=== PATIENT | male | born 1955 | race Caucasian/White ===

== ENCOUNTER 2021-05-23 13:23 | Inpatient (IN) | payer OTHER, SELFPAY ==
[~2021-05-23] VITALS: Ht 172.7 cm; Wt 53.5 kg
[2021-05-23 13:23] VITALS: BP 113/72
--- NOTE | 2021-05-23 13:23 | NUR ---
PT BIBA ON A 5150 FOR GRAVELY DISABLED. PT PLACED IN BED 5. PT UNCOOPERATIVE AT THIS TIME.
[2021-05-23] MEDS ORDERED: BLOOD GLUCOSE MONITORING 1 DEV DEV FS ONE (13:30)
[2021-05-23] MEDS ORDERED: NACL 0.9% 1,000 ML IV ONE (13:30)
--- NOTE | 2021-05-23 13:30 | NUR ---
RECEIVED CONTACT FROM OFFICER BROWN. FAMILY MEMBER- NIECE JOSS MARTINEZ [phone]
--- NOTE | 2021-05-23 13:54 | NUR ---
PT TAKEN TO CT SCAN VIA KIARA
[2021-05-23 13:59] LABS: BASOPHILS # (AUTO) 0.1 K/uL (0.00-0.22); BASOPHILS % (AUTO) 0.4 % (0.0-2.0); EOSINOPHILS # (AUTO) 0.4 K/uL (0-0.4); EOSINOPHILS % (AUTO) 2.3 % (0.0-4.0); LYMPHOCYTES # (AUTO) 1.3 K/uL (2.0-11.5); LYMPHOCYTES % (AUTO) 7.2 % (20.5-51.1); MEAN CORPUSCULAR HEMOGLOBIN 38 pg (27-31); MEAN CORPUSCULAR HGB CONC 34 g/dL (33-37); MEAN CORPUSCULAR VOLUME 110.7 fL (80-94); MONOCYTES # (AUTO) 1.2 K/uL (0.8-1.0); MONOCYTES % (AUTO) 6.6 % (1.7-9.3); NEUTROPHILS # (AUTO) 14.9 K/uL (1.8-7.7); NEUTROPHILS % (AUTO) 83.5 % (42.2-75.2); PLATELET COUNT (AUTO) 177 K/uL (140-450); RED BLOOD CELL COUNT(AUTO) 1.75 MIL/uL (4.20-6.10); RED CELL DISTRIBUTION WIDTH 29.5 % (11.6-13.7); WHITE BLOOD COUNT (AUTO) 17.9 K/uL (4.8-10.8)
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
[2021-05-23 14:14] LABS: HEMATOCRIT 19.3 % (36-52); HEMOGLOBIN 6.5 g/dL (12.0-18.0)
--- NOTE | 2021-05-23 14:21 | NUR ---
NOVEL AND JENNIFER SWABS COLLECTED, DROPPED OFF AT LAB WITH NAINA VASQUEZ
[2021-05-23 14:52] LABS: ALBUMIN 2.5 g/dL (3.4-5.0); ANION GAP 14.7 (8-16); ASPARTATE AMINOTRANSFERASE 68 U/L (15-37); CARBON DIOXIDE 27.2 mmol/L (21-32); CHLORIDE 96 mmol/L (98-107); CREATININE 1.1 mg/dL (0.6-1.3); GFR ARICAN-AMERICAN 86 mL/min (>90); GLUCOSE 142 mg/dL (74-106); SODIUM SERUM 136 mmol/L (136-145); TOTAL BILIRUBIN 4.6 mg/dL (0.0-1.0); UREA NITROGEN, BLOOD 11 mg/dL (7-18)
[2021-05-23 14:53] LABS: PROTHROMBIN TIME 13.9 secs (10.8-13.4)
[2021-05-23 14:54] LABS: POTASSIUM 1.9 mmol/L (3.5-5.1); SALICYLATE < 2.8 mg/dL (2.8-20.0)
[2021-05-23 14:55] LABS: ACETAMINOPHEN < 0.5 ug/ml (10-30)
[2021-05-23] MEDS ORDERED: KCL 20 MEQ/WATER INJ PREMIX 100 ML IV ONE (15:15)
[2021-05-23] MEDS ORDERED: POTASSIUM CHLORIDE 10 MEQ TABER PO ONE (15:15)
--- NOTE | 2021-05-23 15:50 | NUR ---
Patient awake, alert, resting in bed. Vital Signs within normal limits. Respirations even and unlabored. Chest rise is symmetrical. Will continue to monitor.
[2021-05-23] MEDS ORDERED: MAG SULF 2000 MG/WATER PREMIX 50 ML IV ONE (16:05)
--- NOTE | 2021-05-23 16:05 | NUR ---
Consent signed per DR TORRES agreeing to administration of blood. Blood has been type and crossmatched. Blood sent from blood bank. Information on unit of blood checked against patient wristband at bedside by two nurses. All information matches. Patient or responsible green party informed of potential complications associated with blood transfusion. Informed of possible transfusion reaction symptoms. Aware of need to notify nurse at once of itching, shortness of breath, flushing, feeling of impending doom, or other symptoms not previously present. Vital signs taken within 5 minutes prior to initiation of transfusion. RN will remain with patient for first 15 minutes of transfusion at which time vital signs will be re-assessed.
--- NOTE | 2021-05-23 16:23 | NUR ---
PATIENT STATING HE IS HUNGRY AND REQUESTING FOR FOOD. PER DR MELISSA SAENZ TO GIVE. PROVIDED WITH SANDWICH, JELLO AND ORANGE JUICE.
[2021-05-23] MEDS ORDERED: MAGNESIUM OXIDE 400 MG TAB PO PRN (16:25)
[2021-05-23] MEDS ORDERED: KCL 20 MEQ/WATER INJ PREMIX 200 ML IV PRN (16:25)
[2021-05-23] MEDS ORDERED: ACETAMINOPHEN 325 MG TAB PO PRN (16:25)
[2021-05-23] MEDS ORDERED: ONDANSETRON 4 MG/2 ML VIAL IVP PRN (16:25)
[2021-05-23] MEDS: NACL 0.9% 1,000 ML IV SCH (16:35)
--- NOTE | 2021-05-23 18:25 | NUR ---
Patient will be admitted to care of DR MEDINA. Admited to MED SURG. Will go to room 113. Belongings list completed. Report to NATHALIA LAUREANO.
--- NOTE | 2021-05-23 18:25 | NUR ---
BLOOD TRANSFUSION COMPLETED AT THIS TIME
--- NOTE | 2021-05-23 18:30 | NUR ---
PATIENT ARRIVED FROM ER VIA GURNEY. SAFELY TRANSFERRED TO [facility] BED. ON ROOM AIR. IV SITE INTACT PATENT, AND INFUSING POTASSIUM IV. NO DISTRESS NOTED. AAOX3, CALM, COOPERATIVE. ORIENTED PATIENT TO ROOM AND CALL LIGHT. REVIEWED PLAN OF CARE WITH PATIENT. PATIENT VERBALIZED UNDERSTANDING. SAFETY MEASURES IN PLACE, CALL LIGHT WITHIN REACH. WILL CONTINUE MONITOR.
--- NOTE | 2021-05-23 19:21 | NUR ---
GAVE REPORT TO MANAGEMENT SERVICES TECHNICIAN NURSE FOR CONTINUITY OF CARE. PATIENT IN STABLE CONDITION.
--- NOTE | 2021-05-23 19:22 | NUR ---
RECEIVED REPORT FROM DAY SHIFT NURSE AT BEDSIDE. PT IS AWAKE BUT ONLY ORIENTED TO SELF. PATIENT UNABLE TO PROVIDE MEDICAL HX. PT ON ROOM AIR, NO S/S OF DISTRESS. PT COMPLAINS OF GENERALIZED PAIN. WILL ADMINISTER PRN MEDICATION. PT W/ GENERALIZED WEAKNESS, SAFETY MEASURES IN PLACE, REINFORCED TEACHING ON USING THE CALL LIGHT.
--- NOTE | 2021-05-23 19:22 | NUR ---
RIGHT EYE SWELLING NOTED WITH MILD SEROUS DRAINAGE. SKIN INTACT, BLANCHABLE REDNESS NOTED ON THE COCCYX.
[2021-05-23 20:00] VITALS: BP 120/80
[2021-05-23] MEDS: HYDROcodone/APAP 5/325 MG 1 TAB TAB PO PRN (20:33)
--- NOTE | 2021-05-23 20:33 | NUR ---
ADMINISTERED PRN PAIN MEDICATION.
[2021-05-23 20:44] LABS: ANION GAP 9.7 (8-16); CARBON DIOXIDE 28.8 mmol/L (21-32)
[2021-05-23 21:01] LABS: POTASSIUM 2.5 mmol/L (3.5-5.1)
--- NOTE | 2021-05-23 22:25 | NUR ---
NOTIFIED DR. SOUZA ABOUT PT'S POTASSIUM LEVEL OF 2.5. PRN K RIDER INFUSING AT THIS TIME. NO NEW ORDERS RECEIVED.
--- NOTE | 2021-05-24 01:25 | NUR ---
PATIENT ASLEEP, ROOM AIR, NO SIGNS OF DISTRESS, SAFETY MEASURES IMPLEMENTED, CALL LIGHT WITHIN REACH.
--- NOTE | 2021-05-24 01:51 | NUR ---
URINE SPECIMEN COLLECTED AND SENT TO THE LAB
[2021-05-24 02:03] LABS: APPEARANCE,URINE CLEAR (CLEAR); BILIRUBIN,URINE 2+ (NEGATIVE); BLOOD, URINE NEGATIVE (NEGATIVE); COLOR,URINE DARK YELLOW (YELLOW); LEUKOCYTE ESTERASE ,URINE NEGATIVE (NEGATIVE); NITRITE, URINE NEGATIVE (NEGATIVE); UGLUCOSE TRACE (NEGATIVE)
[2021-05-24 02:13] LABS: BARBITURATE, URINE NEGATIVE ng/ml (NEG <=200); BENZODIAZEPINE, URINE NEGATIVE ng/mL (NEG <=200); CANNABINOID, URINE NEGATIVE ng/mL (NEG <=50); COCAINE, URINE NEGATIVE ng/mL (NEG <=300); OPIATE, URINE POSITIVE ng/mL (NEG <=2000); PHENCYCLIDINE SCREEN,URINE NEGATIVE ng/mL (NEG <=25)
[2021-05-24 04:00] VITALS: BP 120/79
[2021-05-24] MEDS: NACL 0.9% 1,000 ML IV SCH ×2 (04:55→12:30)
--- NOTE | 2021-05-24 05:03 | NUR ---
PATIENT GIVEN BED BATH, LINENS CHANGED, PT TURNED AND REPOSITIONED FOR COMFORT.
[2021-05-24 06:34] LABS: BASOPHILS # (AUTO) 0.1 K/uL (0.00-0.22); BASOPHILS % (AUTO) 0.5 % (0.0-2.0); EOSINOPHILS # (AUTO) 0.2 K/uL (0-0.4); EOSINOPHILS % (AUTO) 1.8 % (0.0-4.0); HEMATOCRIT 21.2 % (36-52); HEMOGLOBIN 7.2 g/dL (12.0-18.0); LYMPHOCYTES # (AUTO) 1.3 K/uL (2.0-11.5); LYMPHOCYTES % (AUTO) 9.2 % (20.5-51.1); MEAN CORPUSCULAR HEMOGLOBIN 37 pg (27-31); MEAN CORPUSCULAR HGB CONC 34 g/dL (33-37); MONOCYTES # (AUTO) 0.6 K/uL (0.8-1.0); MONOCYTES % (AUTO) 4.6 % (1.7-9.3); NEUTROPHILS # (AUTO) 11.6 K/uL (1.8-7.7); NEUTROPHILS % (AUTO) 83.9 % (42.2-75.2); PLATELET COUNT (AUTO) 139 K/uL (140-450); RED BLOOD CELL COUNT(AUTO) 1.96 MIL/uL (4.20-6.10); RED CELL DISTRIBUTION WIDTH 29.9 % (11.6-13.7); WHITE BLOOD COUNT (AUTO) 13.8 K/uL (4.8-10.8)
[2021-05-24 06:47] LABS: CHOL/HDL RATIO 9.9 (1-4.5); MAGNESIUM 1.2 mg/dL (1.8-2.4)
[2021-05-24 06:49] LABS: ALBUMIN 2.1 g/dL (3.4-5.0); ANION GAP 11.9 (8-16); CARBON DIOXIDE 28.2 mmol/L (21-32); CREATININE 0.9 mg/dL (0.6-1.3); POTASSIUM 3.1 mmol/L (3.5-5.1); TOTAL BILIRUBIN 5.2 mg/dL (0.0-1.0)
--- NOTE | 2021-05-24 07:30 | NUR ---
PT REPORT GIVEN AT BEDSIDE. PT IN STABLE CONDITION
--- NOTE | 2021-05-24 07:31 | NUR ---
Received report from pm nurse. Pt resting in bed, awake, verbally responsive, no signs and symptoms of distress. Respirations even & nonlabored in room air. Left forearm 22G IV intact with ongoing NS@ 80mL/hr. Pt remains on droplet precautions.
--- NOTE | 2021-05-24 07:57 | NUR ---
PATIENT HAS BEEN SCREENED AND CATEGORIZED HIGH NUTRITION RISK. PATIENT WILL BE SEEN WITHIN 1-2 DAYS OF ADMISSION. 05/24/21-05/25/21 FNS REFERRAL RECEIVED FOR POOR APPETITE AND MALNUTRITION TERRI GOMEZ RD
[2021-05-24 08:00] VITALS: BP 110/72
[2021-05-24] MEDS: DOCUSATE SODIUM 100 MG GELCAP PO SCH (08:08)
[2021-05-24] MEDS: POTASSIUM CHLORIDE 10 MEQ TABER PO PRN (08:08)
[2021-05-24] MEDS: MAG SULF 2000 MG/WATER PREMIX 50 ML IV PRN (08:09)
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
--- NOTE | 2021-05-24 13:54 | NUR ---
05/24/21 RD INITIAL ASSESSMENT COMPLETED PLEASE REFER TO NUTRITION ASSESSMENT UNDER CARE ACTIVITY FOR ESTIMATED NUTRITIONAL NEEDS. 1. CONTINUE CARDIAC DIET TOLERATED 2. RECOMMEND ADD ENSURE BID TO THE DIET DAILY TO HELP WITH WEIGHT GAIN 3. RD TO FOLLOW-UP 2-3 DAYS, HIGH RISK TERRI GOMEZ, RD
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
[2021-05-24 16:00] VITALS: BP 113/70
--- NOTE | 2021-05-24 16:30 | NUR ---
Pt resting in bed, respirations even & nonlabored in room air. Left forearm IV intact with ongoing NS @ 80ml/hr. Call light within reach.
--- NOTE | 2021-05-24 19:15 | NUR ---
Report given to pm nurse.
[2021-05-24] MEDS: HYDROcodone/APAP 5/325 MG 1 TAB TAB PO PRN (20:50)
--- NOTE | 2021-05-25 01:30 | NUR ---
PT BELONGINGS BROUGHT BY SECURITY AND TAKEN TO THE ROOM, ALL BELONGINGS VERIFIED BY PT INCLUDING WALLET WITH $641 DOLLARS GARCIA AND VISA CARD, GEORGI CARRANZA MADE AWARE.
[2021-05-25] MEDS: NACL 0.9% 1,000 ML IV SCH ×2 (02:16→17:31)
[2021-05-25 05:28] VITALS: BP 86/60
[2021-05-25 06:42] LABS: ALBUMIN 1.9 g/dL (3.4-5.0); CARBON DIOXIDE 26.2 mmol/L (21-32); CREATININE 0.7 mg/dL (0.6-1.3); MAGNESIUM 1.3 mg/dL (1.8-2.4); POTASSIUM 3.2 mmol/L (3.5-5.1); TOTAL BILIRUBIN 5.5 mg/dL (0.0-1.0)
[2021-05-25 06:52] LABS: BASOPHILS # (AUTO) 0.1 K/uL (0.00-0.22); BASOPHILS % (AUTO) 0.4 % (0.0-2.0); EOSINOPHILS # (AUTO) 0.4 K/uL (0-0.4); EOSINOPHILS % (AUTO) 2.3 % (0.0-4.0); HEMATOCRIT 20.1 % (36-52); LYMPHOCYTES # (AUTO) 1.3 K/uL (2.0-11.5); LYMPHOCYTES % (AUTO) 8.7 % (20.5-51.1); MEAN CORPUSCULAR HEMOGLOBIN 37 pg (27-31); MEAN CORPUSCULAR HGB CONC 34 g/dL (33-37); MEAN CORPUSCULAR VOLUME 108.7 fL (80-94); MONOCYTES # (AUTO) 0.6 K/uL (0.8-1.0); MONOCYTES % (AUTO) 3.6 % (1.7-9.3); PLATELET COUNT (AUTO) 140 K/uL (140-450); RED BLOOD CELL COUNT(AUTO) 1.85 MIL/uL (4.20-6.10); RED CELL DISTRIBUTION WIDTH 30.8 % (11.6-13.7); WHITE BLOOD COUNT (AUTO) 15.3 K/uL (4.8-10.8)
[2021-05-25 06:57] LABS: HEMOGLOBIN 6.8 g/dL (12.0-18.0)
--- NOTE | 2021-05-25 07:00 | NUR ---
PT REMAINED STABLE THROUGHOUT NIGHTSHIFT. MEDICATED FOR PAIN X 1 WITH GOOD RELIEF. FULL BED BATH GIVEN WITH LINEN CHANGE. NEW CONDOM CATH PLACED TO HELP MANAGE FREQUENT AND LARGE EPISODES OF INCONTINENCE. BELONGINGS GIVEN TO PATIENT FROM SECURITY. PT HAS ALL BELONGINGS AT BEDSIDE. REPORT GIVEN TO AM NURSE.
--- NOTE | 2021-05-25 07:21 | NUR ---
PT ENDORSED BY PAN TANK WORKER NURSE FOR CONTINUITY OF CARE, POC DISCUSSED. PT IS ON A 5150 HOLD AND WAS FOUND ON THE STREETS. PT ON ROOM AIR WITH CHEST RISING AND FALLING EVEN AND UNLABORED SATING AT 100%, NO S/S OF ACUTE DISTRESS. PT H&H 6.8 AND 20.1, DR MEDINA ORDERED 1UNIT OF PRBC. BLOOD BANK NOTIFIED AND WILL CALL WHEN BLOOD IS READY. PT K 3.2 AND MAG 1.3; WILL REPLACE PER MD ORDER. PT SKIN INTACT BUT IS JAUNDICE. PT HAS A R FOREARM 20 G HEP LOCK AND A LEFT 22 FOREARM RUNNING NS @ 80ML/HR. ALL SAFETY MEASURES IN PLACE, CALL LIGHT WITHIN REACH. WILL CONTINUE TO MONITOR.
[2021-05-25] MEDS: MAG SULF 2000 MG/WATER PREMIX 50 ML IV PRN (09:18)
[2021-05-25] MEDS: POTASSIUM CHLORIDE 10 MEQ TABER PO PRN (09:19)
[2021-05-25] MEDS: HYDROcodone/APAP 5/325 MG 1 TAB TAB PO PRN ×2 (09:19→17:32)
[2021-05-25] MEDS: DOCUSATE SODIUM 100 MG GELCAP PO SCH (09:19)
--- NOTE | 2021-05-25 09:20 | NUR ---
MIMI MEDICATION ADMINISTERED PER MD ORDER, PT EDUCATION PROVIDED. PT NODDED IN UNDERSTANDING. ADMINISTERED PRN MEDICATION FOR LOW POTASSIUM AND MAGNESIUM LEVELS. PRN PAIN MEDICATION FOR PAIN LEVEL OF 6. PT VITAL SIGNS STABLE. ALL SAFETY MEASURES IN PLACE, CALL LIGHT WITHIN REACH. WILL CONTINUE TO MONITOR.
--- NOTE | 2021-05-25 12:15 | NUR ---
PT PRBC TRANSFUSION HAS BEEN STARTED, PRE TRANSFUSION VITAL SIGNS HAVE BEEN OBTAINED AND ARE 97.3, 96 HR, 16 RR, 94/58 BP, 0/10 HR, 98% O2 SAT. PT IS RESTING IN BED COMFORTABLY ON ROOM AIR WITH CHEST RISING AND FALLING EVEN AND UNLABORED. ALL SAFETY MEASURES IN PLACE, CALL LIGHT WITHIN REACH. WILL CONTINUE TO MONITOR.
--- NOTE | 2021-05-25 13:00 | NUR ---
PT IS TOLERATING BLOOD TRANSFUSION, VITAL SIGNS 97.8, 76 HR, 14 RR, 90/58, 0/10 PAIN, 95 O2 SAT. PT DENIES PAIN OR ANY SIDE EFFECTS. PT VERBALIZED ALL NEEDS ARE MET. ALL SAFETY MEASURES IN PLACE, CALL LIGHT WITHIN REACH. WILL CONTINUE TO MONITOR.
--- NOTE | 2021-05-25 13:12 | NUR ---
ATTEMPTED TO SEE PATIENT FOR PHYSICAL THERAPY TREATMENT HOWEVER RN INSTRUCTED TO HOLD AT THIS TIME DUE TO BEGINNING BLOOD TRANSFUSION. HGB 6.8. WILL FOLLOW UP THURSDAY FOR TREATMENT.
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
--- NOTE | 2021-05-25 15:32 | NUR ---
WAITING ON PT TO HAVE A BOWEL MOVEMENT TO COLLECT STOOL SAMPLE THAT DR. LONGORIA ORDERED.
[2021-05-25 16:00] VITALS: BP 103/78
--- NOTE | 2021-05-25 17:38 | NUR ---
PRN PAIN MEDICATION ADMINISTERED, PT COMPLAINED OF PAIN 04/18. BROUGHT PT DECAF COFFE AND SUGAR FREE PUDDING PER PT REQUEST. PT UPSET, STATED "THE DR JUST CAME IN AND REMOVED MY COVERS WITHOUT SAYING ANYTHING. I DON'T KNOW WHO HE IS. " APOLOGIZED TO THE PT AND EXPLAINED THAT THE DOCTOR IS MAKING SURE HE IS GETTING BETTER. PT STATED HE WANTED TO SPEAK WITH SISTER. CALLED SISTER ON PT PHONE. ALL SAFETY MEASURES IN PLACE, CALL LIGHT WITHIN REACH. WILL CONTINUE TO MONITOR.
--- NOTE | 2021-05-25 18:54 | NUR ---
LATE ENTRY- POTASSIUM CHLORIDE INFUSION DISCONTINUED AT 1755.
--- NOTE | 2021-05-25 19:04 | NUR ---
PT IS IN STABLE CONDITION AND WILL BE ENDORSED TO RISK MANAGEMENT PROFESSIONAL NURSE. ALL SAFETY MEASURES IN PLACE. POC DISCUSSED.
--- NOTE | 2021-05-25 19:15 | NUR ---
RECEIVED PT ON STABLE CONDITION FROM AM NURSE. AWAKE,ALERT AND ORIENTED X2-3. BEDREST. MED SURG PT. WITH IVF INFUSING WELL ON THE LT FA G#22. PT INCONTINENT, CONDOM CATH IN PLACED. PLAN OF CARE DISCUSSED. NEED REINFORCEMENT. FREQ ROUNDS NEEDED. BED ON LOWEST POSITION. SIDE RAILS UP X2. CALL LIGHT WITHIN EASY REACH WILL CONTINUE TO MONITOR.
[2021-05-25 20:00] VITALS: BP 111/71
--- NOTE | 2021-05-25 21:00 | NUR ---
TOOK NIGHT MED DUE. TOLERATED WELL.
[2021-05-25] MEDS: LACTULOSE 20 GM/30 ML UDC PO SCH (21:06)
--- NOTE | 2021-05-26 00:30 | NUR ---
MADE ROUNDS. INSTRUCTED PT NPO STATUS FOR EGD/COLONOSCOPY. CONSENT STILL NEED TO BE SIGNED.
--- NOTE | 2021-05-26 02:00 | NUR ---
MADE ROUNDS. PT ASLEEP. NO DISTRESS NOTED. WILL CONTINUE TO MONITOR.
[2021-05-26 04:00] VITALS: BP 102/62
[2021-05-26] MEDS: NACL 0.9% 1,000 ML IV SCH (06:10)
[2021-05-26 06:39] LABS: BASOPHILS % (AUTO) 0.2 % (0.0-2.0); EOSINOPHILS # (AUTO) 0.4 K/uL (0-0.4); EOSINOPHILS % (AUTO) 1.6 % (0.0-4.0); HEMATOCRIT 26.1 % (36-52); HEMOGLOBIN 8.9 g/dL (12.0-18.0); MEAN CORPUSCULAR HEMOGLOBIN 36 pg (27-31); MEAN CORPUSCULAR HGB CONC 34 g/dL (33-37); MEAN CORPUSCULAR VOLUME 106.4 fL (80-94); MONOCYTES # (AUTO) 0.8 K/uL (0.8-1.0); MONOCYTES % (AUTO) 3.7 % (1.7-9.3); NEUTROPHILS # (AUTO) 18.4 K/uL (1.8-7.7); PLATELET COUNT (AUTO) 163 K/uL (140-450); RED BLOOD CELL COUNT(AUTO) 2.45 MIL/uL (4.20-6.10); RED CELL DISTRIBUTION WIDTH 31.3 % (11.6-13.7); WHITE BLOOD COUNT (AUTO) 21.6 K/uL (4.8-10.8)
[2021-05-26 07:02] LABS: ALBUMIN 2.1 g/dL (3.4-5.0); ANION GAP 12.9 (8-16); CARBON DIOXIDE 24.8 mmol/L (21-32); CREATININE 0.8 mg/dL (0.6-1.3); MAGNESIUM 1.3 mg/dL (1.8-2.4); POTASSIUM 3.7 mmol/L (3.5-5.1); TOTAL BILIRUBIN 6.5 mg/dL (0.0-1.0)
--- NOTE | 2021-05-26 07:19 | NUR ---
RECEIVED REPORT FROM PERSONAL CARE ASSISTANT NURSE FOR CONTINUITY OF CARE. PATIENT IN BED AWAKE. BREATHING IS EVEN AND UNLABORED ALL SAFETY MEASURES IN PLACE WILL CONTINUE TO MONITOR.
[2021-05-26 07:23] LABS: LYMPHOCYTES % (AUTO) 9.3 % (20.5-51.1); NEUTROPHILS % (AUTO) 85.2 % (42.2-75.2)
[2021-05-26] MEDS: DOCUSATE SODIUM 100 MG GELCAP PO SCH (09:00)
[2021-05-26] MEDS: LACTULOSE 20 GM/30 ML UDC PO SCH ×2 (09:00→20:22)
--- NOTE | 2021-05-26 09:05 | NUR ---
PATIENT IN BED SLEEPING. BREATHING EVEN AND UNLABORED. ALL SAFETY MEASURES IN PLACE. WILL CONTINUE TO MONITOR.
--- NOTE | 2021-05-26 11:31 | NUR ---
PATIENT IN BED. NO ACUTE DISTRESS NOTED. ALL SAFETY MEASURES IN PLACE.
--- NOTE | 2021-05-26 13:16 | NUR ---
PATIENT AWAKE LAYING IN BED. PATIENT IN PLEASANT MOOD. PATIENT REQUEST EXTRA BLANKET. BLANKET BROUGHT TO PATIENT. ALL SAFETY MEASURES IN PLACE.
[2021-05-26] MEDS: SENNA 8.6 MG TAB PO SCH ×2 (14:14→17:46)
--- NOTE | 2021-05-26 15:47 | NUR ---
PATIENT SLEEPING. BREATHING EVEN AN UNLABORED. SAFETY MEASURES IN PLACE. WILL CONTINUE TO MONITOR.
[2021-05-26 16:00] VITALS: BP 112/70
--- NOTE | 2021-05-26 17:57 | NUR ---
PATIENT SITTING UP IN BED WAITING FOR DINNER. NO ACUTE DISTRESS NOTED. COMPLIANT WITH ROUTINE MEDICATION. ALL SAFETY MEASURES IN PLACE. WILL CONTINUE TO MONITOR.
--- NOTE | 2021-05-26 19:20 | NUR ---
ENDORSED TO MARKETING/SALES PERSON FOR CONTINUITY OF CARE. PATIENT STABLE. ALL SAFETY MEASURES IN PLACE.
--- NOTE | 2021-05-26 19:25 | NUR ---
RECEIVED PT IN STABLE CONDITION FROM AM NURSE. AWAKE,ALERT AND ORIENTED X3. MED SURG PT. BEDREST. WITH NO C/O ANY DISCOMFORT NOR PAIN NOTED. ON RA, O2 SAT 97%. WITH HL ON THE LT AC G#20. PT IS INCONTINENT. WITH CONDOM CATH IN PLACED. FREQ ROUNDS NEEDED. BED ON LOWEST POSITION. SIDE RAILS UP X2. CALL LIGHT PLACED WITHIN EASY REACH. WILL CONTINUE TO MONITOR.
[2021-05-26 20:30] VITALS: BP 102/66
--- NOTE | 2021-05-26 20:30 | NUR ---
PT CONDOM CATHETER OUT. PT WET WITH URINE AND HAVE A LARGE SOFT YELLOW/BROWNISH STOOL . CLEANED AND KEPT DRY. REPOSITIONED FOR COMFORT.
[2021-05-26] MEDS: HYDROcodone/APAP 5/325 MG 1 TAB TAB PO PRN (20:42)
--- NOTE | 2021-05-26 21:40 | NUR ---
CHECKED ON PT. AWAKE. HE SAID HE FELT BETTER AFTER THE NORCO GIVEN AT 2041. WILL CONTINUE TO MONITOR.
--- NOTE | 2021-05-26 23:00 | NUR ---
MADE ROUNDS. PT AWAKE. NO MORE C/O ANY DISCOMFORT NOTED.
--- NOTE | 2021-05-27 01:00 | NUR ---
MADE ROUNDS. PT ASLEEP. NO S/S OF ANY DISCOMFORT NOTE.
--- NOTE | 2021-05-27 03:30 | NUR ---
PT SLEEPING. NO S/S OF ANY DISCOMFORT NOTED. O2 SAT 97%. WILL CONTINUE TO MONITOR.
--- NOTE | 2021-05-27 04:15 | NUR ---
ASSISTED PT TO GO BATHROOM. ABLE TO AMBULATE WITH STANDBY ASSISTANCE. HAD BM X3 DURING THE NIGHT.
--- NOTE | 2021-05-27 04:30 | NUR ---
IV ACCESS PULLED OUT BY PT. TRIED TO INSERT NEW IV BUT FAILED. PT REFUSED TO HAVE ANOTHER TRY.
--- NOTE | 2021-05-27 06:00 | NUR ---
CHECKED ON PT. AWAKE. NO C/O ANY DISCOMFORT NOR PAIN NOTED.
[2021-05-27 07:03] LABS: BASOPHILS % (AUTO) 0.3 % (0.0-2.0); EOSINOPHILS # (AUTO) 0.2 K/uL (0-0.4); EOSINOPHILS % (AUTO) 1.1 % (0.0-4.0); HEMOGLOBIN 7.8 g/dL (12.0-18.0); LYMPHOCYTES # (AUTO) 0.9 K/uL (2.0-11.5); LYMPHOCYTES % (AUTO) 4.7 % (20.5-51.1); MEAN CORPUSCULAR HEMOGLOBIN 36 pg (27-31); MEAN CORPUSCULAR HGB CONC 34 g/dL (33-37); MEAN CORPUSCULAR VOLUME 106.3 fL (80-94); MONOCYTES # (AUTO) 0.7 K/uL (0.8-1.0); MONOCYTES % (AUTO) 3.6 % (1.7-9.3); NEUTROPHILS # (AUTO) 16.9 K/uL (1.8-7.7); NEUTROPHILS % (AUTO) 90.3 % (42.2-75.2); PLATELET COUNT (AUTO) 164 K/uL (140-450); RED BLOOD CELL COUNT(AUTO) 2.17 MIL/uL (4.20-6.10); RED CELL DISTRIBUTION WIDTH 31.4 % (11.6-13.7); WHITE BLOOD COUNT (AUTO) 18.8 K/uL (4.8-10.8)
[2021-05-27 07:11] LABS: ALBUMIN 1.8 g/dL (3.4-5.0); ANION GAP 12.2 (8-16); CARBON DIOXIDE 22.9 mmol/L (21-32); CREATININE 0.7 mg/dL (0.6-1.3); MAGNESIUM 1.1 mg/dL (1.8-2.4); POTASSIUM 3.1 mmol/L (3.5-5.1); TOTAL BILIRUBIN 6.2 mg/dL (0.0-1.0)
--- NOTE | 2021-05-27 07:20 | NUR ---
ENDORSED PT IN STABLE CONDITION TO AM NURSE.
--- NOTE | 2021-05-27 07:20 | NUR ---
RECEIVE REPORT FROM MACHINE WASHER NURSE FOR CONTINUITY OF CARE. PATIENT SLEEPING IN BED. BREATHING EVEN AND UNLABORED. ALL SAFETY MEASURES IN PLACE. WILL CONTINUE TO MONITOR.
[2021-05-27 08:00] VITALS: BP 114/69
[2021-05-27] MEDS: SENNA 8.6 MG TAB PO SCH ×3 (09:00→17:00)
[2021-05-27] MEDS: DOCUSATE SODIUM 100 MG GELCAP PO SCH (09:00)
[2021-05-27] MEDS: LACTULOSE 20 GM/30 ML UDC PO SCH ×2 (09:00→21:00)
--- NOTE | 2021-05-27 09:49 | NUR ---
PATIENT IN BED. BREATHING IS KIM AND UNLABORED. PATIENT REFUSE ROUTINE MEDICATION. PATIENT MAGNESIUM 1.1 AND POTASSIUM 3.1. EDUCATED PATIENT ON NEED FOR MEDICATIONS. ALSO EDUCATED PATIENT ON THE NEED TO START AN IV ACCESSES. PATIENT VERBALIZE UNDERSTANDING BUT REFUSES BOTH MEDICATION AND IV START. DR. SOUZA NOTIFIED.
[2021-05-27] MEDS: HYDROcodone/APAP 5/325 MG 1 TAB TAB PO PRN ×2 (09:54→19:01)
--- NOTE | 2021-05-27 14:33 | NUR ---
PATIENT IN BED SLEEPING. BREATHING IS EVEN AND UNLABORED. ALL SAFETY MEASURES IN PLACE. WILL CONTINUE TO MONITOR.
--- NOTE | 2021-05-27 15:23 | NUR ---
05/27/21 RD FOLLOW UP COMPLETED PLEASE REFER TO NUTRITION ASSESSMENT UNDER CARE ACTIVITY FOR ESTIMATED NUTRITIONAL NEEDS. 1. CONTINUE REGULAR DIET TOLERATED 2. RD TO FOLLOW-UP 5-7 DAYS, LOW RISK TERRI GOMEZ RD
[2021-05-27 16:00] VITALS: BP 102/62
--- NOTE | 2021-05-27 16:10 | NUR ---
PATIENT SITTING UP IN BED. NO ACUTE DISTRESS NOTED. ALL SAFETY MEASURES IN PLACE.
--- NOTE | 2021-05-27 18:18 | NUR ---
PATIENT UP IN BED TALKING ON PHONE. BREATHING EVEN AN UNLABORED. ALL SAFETY MEASURES IN PLACE.
--- NOTE | 2021-05-27 19:27 | NUR ---
ENDORSED TO OUTPATIENT PHYSICAL THERAPIST ASSISTANT NURSE FOR CONTINUITY OF CARE. PATIENT STABLE. ALL SAFETY MEASURES IN PLACE.
--- NOTE | 2021-05-27 19:30 | NUR ---
RECEIVED REPORT FROM TAWANNA LAUREANO [facility] NURSE, PT IS IN OR AT THIS TIME. Addendum: 05/28/21 at 0303 by Shirley Rush RN WRONG CHART
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
--- NOTE | 2021-05-27 20:00 | NUR ---
PT SITTING UP IN BED. HE REMAINS ON ROOM AIR. V/S FOLLOWS: T 97.8 P 99 R 16 B/P 120/76 02 94% ON ROOM AIR. PT HAS NO C/VOICED AT THIS TIME. PT ELECTROLYTES POTASSIUM AND MAGNESIUM IS LOW, HOWEVER PT REFUSES TO TAKE ANY ORDERED SUPPLEMENTAL MEDICATION. ALL FALLS PRECAUTIONS IN PLACE.
--- NOTE | 2021-05-27 21:45 | NUR ---
PT OFFERED ORDERED LACTULOSE, WHICH HE DECLINED AT THIS TIME. PT ASKED IF HE NEEDS ANY FOOD, WATER OR THE BATHROOM AND REMINDED THAT URINAL IS AT BEDSIDE. PT VERBALIZED ACKNOWLEDGEMENT.
--- NOTE | 2021-05-27 22:30 | NUR ---
PT RETURNED FROM OR. SHE IS DROWSY AND MOANING ON ROOM AIR AND WITH IV SITE INTACT FLUIDS STOPPED AT THIS TIME. REPORT WAS GIVEN AT BEDSIDE FORM OR. PT RECENTLY MEDICATED IN PACU DEPARTMENT. V/S FOLLOWS: T 97.7 P 59 B/P 132/75 02 90% ON ROOM AIR. PT WENT BACK TO SLEEP. NORMAL SALINE RESTARTED AT 80MLS/HR. Addendum: 05/28/21 at 0302 by Shirley Rush RN WRONG CHART
--- NOTE | 2021-05-27 23:00 | NUR ---
ROUNDS DONE, PT IN BED , HE WAS ASKED AGAIN, ABOUT ANY NEEDS THAT HE MIGHT HAVE. PT DECLINED SAYING IM FINE. PT REMINDED TO USE CALL MIMS IF HE HAS ANY NEED FOR ASSISTANCE, PT VERBALIZED ACKNOWLEDGEMENT.
[2021-05-28] VITALS: BP 125/77
--- NOTE | 2021-05-28 00:15 | NUR ---
ROUNDS DONE, PT DRY IN BED, HE SAID HE WILL USE URINAL NEEDED. HE DID TAKE A SNACK OF SANDWICH AND DRINK WHICH WAS OFFERED TO HIM. PT REMINDED AGAIN TO USE CALL MIMS NEEDED. PT VERBALIZED UNDERSTANDING.
--- NOTE | 2021-05-28 02:00 | NUR ---
ROUNDS DONE, PT IN BED ASLEEP ALL FALLS PRECAUTIONS IN PLACE.
[2021-05-28 04:00] VITALS: BP 99/57
--- NOTE | 2021-05-28 04:30 | NUR ---
PT IN BED HE IS AOX1 , NO C/O VOICED. V/S FOLLOWS: T 99.3 P 85 R 18 B/P 99/47 02 96% ON ROOM AIR. ALL ORDERED PRECAUTIONS IN PLACE. PT HAS NO C/O VOICED .
[2021-05-28 07:12] LABS: BASOPHILS # (AUTO) 0.1 K/uL (0.00-0.22); BASOPHILS % (AUTO) 0.3 % (0.0-2.0); EOSINOPHILS # (AUTO) 0.4 K/uL (0-0.4); EOSINOPHILS % (AUTO) 2.3 % (0.0-4.0); HEMATOCRIT 23.8 % (36-52); HEMOGLOBIN 8.1 g/dL (12.0-18.0); LYMPHOCYTES # (AUTO) 1.1 K/uL (2.0-11.5); LYMPHOCYTES % (AUTO) 6.2 % (20.5-51.1); MEAN CORPUSCULAR HEMOGLOBIN 36 pg (27-31); MEAN CORPUSCULAR HGB CONC 34 g/dL (33-37); MEAN CORPUSCULAR VOLUME 106.6 fL (80-94); MONOCYTES # (AUTO) 0.8 K/uL (0.8-1.0); MONOCYTES % (AUTO) 4.4 % (1.7-9.3); NEUTROPHILS % (AUTO) 86.8 % (42.2-75.2); PLATELET COUNT (AUTO) 164 K/uL (140-450); RED BLOOD CELL COUNT(AUTO) 2.23 MIL/uL (4.20-6.10); WHITE BLOOD COUNT (AUTO) 18.4 K/uL (4.8-10.8)
[2021-05-28 07:18] LABS: ALBUMIN 1.8 g/dL (3.4-5.0); ANION GAP 10.6 (8-16); CARBON DIOXIDE 24.7 mmol/L (21-32); CREATININE 0.8 mg/dL (0.6-1.3); POTASSIUM 3.3 mmol/L (3.5-5.1); TOTAL BILIRUBIN 6.5 mg/dL (0.0-1.0)
--- NOTE | 2021-05-28 07:30 | NUR ---
RECEIVED REPORT FROM INFECTIOUS DISEASE TECHNICIAN NURSE FOR CONTINUITY OF CARE. AOX2-3, DOES NOT KNOW SITUATION. MEDSURG. ON RA, SATURATING AT 94%. INCONTINENT, USES DIAPER AND URINAL. PATIENT REFUSING IV INSERTION, MD AWARE. CALL LIGHT WITHIN REACH. SAFETY MEASURES IN PLACE, BED LOCKED, BED IN LOW POSITION. WILL CONTINUE TO MONITOR.
[2021-05-28 08:00] VITALS: BP 115/70
--- NOTE | 2021-05-28 08:15 | NUR ---
DR. SOUZA ROUNDING ON PATIENT. UPDATED ON STATUS AND CONDITION. AWARE PATIENT IS REFUSING SCHEDULED MEDICATION AND TREATMENT. WILL CONTINUE TO MONITOR.
--- NOTE | 2021-05-28 08:35 | NUR ---
CHECKED ON PATIENT. NO SIGN OF PAIN OR DISTRESS. PATIENT REFUSED SCHEDULED AM MEDICATION AND ELECTROLYTE REPLACEMENT. DISCUSSED RISK AND BENEFITS. PATIENT STATED DOES NOT NEEDED. DISCUSSED PLAN OF CARE. PATIENT VERBALIZE UNDERSTANDING.
[2021-05-28] MEDS: LACTULOSE 20 GM/30 ML UDC PO SCH (08:46)
[2021-05-28] MEDS: SENNA 8.6 MG TAB PO SCH ×3 (08:47→17:00)
[2021-05-28] MEDS ORDERED: MAG SULF 2000 MG/WATER PREMIX 50 ML IV SCH (09:30)
[2021-05-28] MEDS ORDERED: FOLI2000 PO (10:36)
[2021-05-28] MEDS ORDERED: MAGN400T61 PO (10:36)
[2021-05-28] MEDS ORDERED: THIA-10 PO (10:36)
[2021-05-28] MEDS ORDERED: POTA10TE30 PO (10:36)
--- NOTE | 2021-05-28 12:10 | NUR ---
PATIENT FAMILY CALLED, JOSS MARTINEZ (NIECE), UPDATED ON PATIENT STATUS AND CONDITION. ALL QUESTIONS ANSWERED. WILL CONTINUE TO MONITOR.
--- NOTE | 2021-05-28 14:21 | NUR ---
CHECKED ON PATIENT. NO SIGN OF PAIN OR DISTRESS. WILL CONTINUE TO MONITOR.
[2021-05-28 16:00] VITALS: BP 107/57
--- NOTE | 2021-05-28 18:11 | NUR ---
CHECKED ON PATIENT, NO SIGN OF DISTRESS OR PAIN. WILL CONTINUE TO MONITOR. WILL ENDORSE TO SENIOR ELECTRONICS DESIGN ENGINEER.
--- NOTE | 2021-05-28 19:23 | NUR ---
ENDORSED TO MEMBERSHIP MANAGER RN FOR CONTINUITY OF CARE.
--- NOTE | 2021-05-28 19:30 | NUR ---
RECIEVED REPORT FORM RN DAYSHIFT NURSE AT BEDSIDE FOR CONTINUITY OF CARE, PT IN STABLE CONDITION.
[2021-05-28 20:00] VITALS: BP 103/65
--- NOTE | 2021-05-28 20:00 | NUR ---
PT WAS MOVED FORM 114 TO 116 FOR SAFETY OF PT, BED ALARM ON THE BED, PT INSTRUCTED TO CALL FOR HELP WHEN NEEDING TO GET OUT OF BED , DUE TO BEING UNSTEADY GAIT. V/S FOLLOWS: T 98.4 P 97 R 20 B/P 103/65 02 96 % ON ROOM AIR.
[2021-05-28] MEDS: MAGNESIUM OXIDE 400 MG TAB PO SCH (21:00)
[2021-05-28] MEDS: QUEtiapine FUMARATE 25 MG TAB PO SCH (21:00)
[2021-05-28] MEDS: POTASSIUM CHLORIDE 10 MEQ TABER PO SCH (21:00)
--- NOTE | 2021-05-28 21:45 | NUR ---
PT WAS OFFERED SCHEDULED MEDS OF K-DUR, MAG OXIDE AND SEROQUEL. PT DECLINED THE MEDICATIONS. REINFORCED TEACHINGS REGARDING PURPOSE OF MEDICATIONS AND PT CONTINUE TO DECLINE THE ORDERED MEDICATIONS.
[2021-05-28] MEDS: HYDROcodone/APAP 5/325 MG 1 TAB TAB PO PRN (23:07)
--- NOTE | 2021-05-28 23:15 | NUR ---
PT C/O OF MODERATE PAIN 5/10 WAS GIVEN 1 TAB OF 5/325MG NORCO FOR GENERALIZED PAIN. WILL MONITOR FOR EFFECT. PT REMINDED THAT LAST URINE SAMPLE WAS CONTAMINATED DUE TO HIGH NUMBER OF BACTERIA, PT REMINDED TO GIVEN A NEW SAMPLE, CLEAN URINAL PROVIDED AT BEDSIDE.
--- NOTE | 2021-05-29 01:00 | NUR ---
ROUNDS DONE, PT SLEEPING IN BED. ALL FALLS PRECAUTIONS IN PLACE.
--- NOTE | 2021-05-29 02:50 | NUR ---
PT WAS CHANGED AND ALL REQUESTED NEEDS ATTENDED. URINE COLLECTED FOR URINALYSIS.
--- NOTE | 2021-05-29 04:30 | NUR ---
PT WAS TURNED, CHANGED AND REPOSITIONED IN BED , HE DENIES ANY PAIN AL ORDERED PRECAUTIONS IN PLACE AND V/S FOLLOWS: T 97.0 P 88 R 18 B/P 91/57 02 95% ON ROOM AIR. ALL REQUESTS ATTENDED AND ALL ORDERED PRECAUTIONS IN PLACE.
--- NOTE | 2021-05-29 07:20 | NUR ---
RECEIVED REPORT FROM LEDGE MAN NURSE FOR CONTINUITY OF CARE. AOX2-3, DOES NOT KNOW SITUATION. MEDSURG. ON RA, INCONTINENT, USES DIAPER AND URINAL. PATIENT REFUSING IV INSERTION, AWARE. PATIENT REFUSING MEDICATIONS, MD AWARE. CALL LIGHT WITHIN REACH. SAFETY MEASURES IN PLACE, BED LOCKED, BED IN LOW POSITION. WILL CONTINUE TO MONITOR.
[2021-05-29 08:00] VITALS: BP 112/72
[2021-05-29] MEDS: POTASSIUM CHLORIDE 10 MEQ TABER PO SCH ×2 (09:00→21:00)
[2021-05-29] MEDS: MAGNESIUM OXIDE 400 MG TAB PO SCH ×2 (09:00→21:00)
[2021-05-29] MEDS: QUEtiapine FUMARATE 25 MG TAB PO SCH ×2 (09:00→21:00)
[2021-05-29] MEDS: SENNA 8.6 MG TAB PO SCH ×3 (09:01→17:00)
--- NOTE | 2021-05-29 09:05 | NUR ---
ADMINISTERED SCHEDULED AM MEDICATIONS. ORAL CARE, HYGIENE CARE, AND CHG BATH PROVIDED. WILL CONTINUE TO MONITOR.
--- NOTE | 2021-05-29 10:50 | NUR ---
PHYSICAL THERAPY FOUNDS PILLS. ASKED PATIENT IF HE TOOK THEM, SAID DO NOT TELL THE NURSE, BUT KNOW. WILL CONTINUE TO MONITOR.
[2021-05-29] MEDS: HYDROcodone/APAP 5/325 MG 1 TAB TAB PO PRN ×2 (12:05→18:49)
--- NOTE | 2021-05-29 12:05 | NUR ---
PATIENT REPORT PAIN 6/10 NORCO GIVEN. WILL REASSESS. WILL CONTINUE TO MONITOR.
--- NOTE | 2021-05-29 12:35 | NUR ---
REASSESSED PATIENT VERBALIZES PAIN RELIEVED. WILL CONTINUE TO MONITOR.
[2021-05-29 12:39] LABS: EOSINOPHILS # (AUTO) 0.3 K/uL (0-0.4); HEMOGLOBIN 7.7 g/dL (12.0-18.0); RED CELL DISTRIBUTION WIDTH 30.7 % (11.6-13.7)
[2021-05-29 12:46] LABS: BASOPHILS % (AUTO) 0.3 % (0.0-2.0); EOSINOPHILS % (AUTO) 1.6 % (0.0-4.0); HEMATOCRIT 22.4 % (36-52); LYMPHOCYTES # (AUTO) 1.3 K/uL (2.0-11.5); LYMPHOCYTES % (AUTO) 7.6 % (20.5-51.1); MEAN CORPUSCULAR HEMOGLOBIN 37 pg (27-31); MEAN CORPUSCULAR HGB CONC 35 g/dL (33-37); MEAN CORPUSCULAR VOLUME 106.5 fL (80-94); MONOCYTES # (AUTO) 0.9 K/uL (0.8-1.0); MONOCYTES % (AUTO) 5.5 % (1.7-9.3); NEUTROPHILS # (AUTO) 14.4 K/uL (1.8-7.7); PLATELET COUNT (AUTO) 197 K/uL (140-450); WHITE BLOOD COUNT (AUTO) 16.9 K/uL (4.8-10.8)
[2021-05-29 12:47] LABS: ALBUMIN 1.8 g/dL (3.4-5.0); ANION GAP 10.9 (8-16); CARBON DIOXIDE 24.5 mmol/L (21-32); CREATININE 0.7 mg/dL (0.6-1.3); MAGNESIUM 1.1 mg/dL (1.8-2.4); POTASSIUM 3.4 mmol/L (3.5-5.1); TOTAL BILIRUBIN 6.4 mg/dL (0.0-1.0)
--- NOTE | 2021-05-29 14:18 | NUR ---
CHECKED ON PATIENT. NO SIGN OF DISTRESS OR PAIN. WILL CONTINUE TO MONITOR.
[2021-05-29 16:00] VITALS: BP 110/68
--- NOTE | 2021-05-29 17:53 | NUR ---
CHECKED PATIENT. NO SIGN OF PAIN OR DISTRESS. WILL CONTINUE TO MONITOR. WILL ENDORSE TO TYPEWRITER ASSEMBLER.
--- NOTE | 2021-05-29 18:35 | NUR ---
NURSE FROM [facility] CALLED. TO RECEIVE INFORMATION ON PATIENT FOR PLACEMENT. ALL QUESTIONS ANSWERED. STATED WILL CALL BACK AFTER EVALUATION WITH REMEDIATION CONSULTANT. WILL CONTINUE TO MONITOR. WILL ENDORSE TO COCKTAIL SERVER.
--- NOTE | 2021-05-29 19:35 | NUR ---
ENDORSED TO SAND CUTTER FOR CONTINUITY OF CARE.
--- NOTE | 2021-05-29 19:37 | NUR ---
RECEIVED PT FROM AM NURSE FOR CONTINUITY OF CARE. AWAKE IN BED RESTING, NO S/S OF RESPIRATORY DISTRESS. SAFETY PRECAUTION IN PLACE. CALL LIGHT WITHIN REACH. DENIES PAIN.
--- NOTE | 2021-05-29 21:45 | NUR ---
PATIENT REFUSED ALL 2100 MEDICATIONS. EXPLAINED THE RISKS AND BENEFITS STILL REFUSED TO TAKE IT.
--- NOTE | 2021-05-29 23:51 | NUR ---
Packet fax to the following facilities [facility] Addendum: 05/30/21 at 1053 by Liz Mcdaniels CM DC PLANNING: CLAUDIA SPOKE WITH DR HAWLEY, PSYCHIATRIST, HOLD COVERING 05/31 THROUGH 06/02 WILL BE WRITTEN IF PATIENT DOESN'T DC TODAY.
[2021-05-30] VITALS: BP 92/50
[2021-05-30 07:01] LABS: ANION GAP 11.1 (8-16); CARBON DIOXIDE 26.3 mmol/L (21-32); CREATININE 0.9 mg/dL (0.6-1.3); POTASSIUM 3.4 mmol/L (3.5-5.1)
[2021-05-30 07:12] LABS: BASOPHILS % (AUTO) 0.1 % (0.0-2.0); EOSINOPHILS # (AUTO) 0.3 K/uL (0-0.4); EOSINOPHILS % (AUTO) 1.9 % (0.0-4.0); HEMATOCRIT 23.3 % (36-52); HEMOGLOBIN 7.9 g/dL (12.0-18.0); LYMPHOCYTES # (AUTO) 1.1 K/uL (2.0-11.5); LYMPHOCYTES % (AUTO) 6.4 % (20.5-51.1); MEAN CORPUSCULAR HEMOGLOBIN 36 pg (27-31); MEAN CORPUSCULAR HGB CONC 34 g/dL (33-37); MEAN CORPUSCULAR VOLUME 106.4 fL (80-94); MONOCYTES % (AUTO) 5.7 % (1.7-9.3); NEUTROPHILS # (AUTO) 14.6 K/uL (1.8-7.7); NEUTROPHILS % (AUTO) 85.9 % (42.2-75.2); PLATELET COUNT (AUTO) 207 K/uL (140-450); RED BLOOD CELL COUNT(AUTO) 2.19 MIL/uL (4.20-6.10); RED CELL DISTRIBUTION WIDTH 30.6 % (11.6-13.7)
--- NOTE | 2021-05-30 07:25 | NUR ---
ENDORSED TO THE AM SHIFT RN FOR CONTINUITY OF CARE. PT IN STABLE CONDITION.
[2021-05-30 09:00] VITALS: BP 82/53
[2021-05-30] MEDS: SENNA 8.6 MG TAB PO SCH ×3 (09:32→18:23)
[2021-05-30] MEDS: MAGNESIUM OXIDE 400 MG TAB PO SCH ×2 (09:32→20:37)
[2021-05-30] MEDS: QUEtiapine FUMARATE 25 MG TAB PO SCH ×2 (09:32→20:36)
[2021-05-30] MEDS: POTASSIUM CHLORIDE 10 MEQ TABER PO SCH ×2 (09:32→20:38)
[2021-05-30] MEDS: HYDROcodone/APAP 5/325 MG 1 TAB TAB PO PRN ×2 (09:43→20:39)
[2021-05-30 17:00] VITALS: BP 103/57
--- NOTE | 2021-05-30 17:00 | NUR ---
VSS. NO SIGNIFICANT CHANGES IN COND DURING SHIFT. PT REFUSED STOOL SOFTENERS. REMAINS CONFUSED ABOUT MEDICAL DIAGNOSIS. PT BECAME AGITATED DURING AM MEDICATION ROUNDS AND STATED IN CUBAN "I DONT HAVE TO TAKE ANY OF THESE MEDICATIONS BECAUSE I DONT HAVE ANYTHING WRONG WITH ME." REOIRENTED PT TO SITUATION AND PT FINALLY TOOK MEDS. HE IS AGREEABLE TO TAKE NORCO FOR PAIN. MEDICATED X1 FOR PAIN WITH NORCO PO. AWAITING PLACEMENT AT PSYCH FACILITY. WILL MONITOR PT PER PROTOCOL.
--- NOTE | 2021-05-30 19:30 | NUR ---
RECEIVED CARE AND REPORT FROM DAYSHIFT RN. PATIENT ALERT AND ORIENTED X2 TO PERSON, PLACE, COMMUNICATED CONFUSED SPEECH AT TIMES. PATIENT TRACKING WITH EYES AND ALERT WHEN ASKING QUESTIONS. PATIENT ON ROOM AIR OXYGEN SATURATION AT 96%, DENIES SHORTNESS OF BREATH AND DENIES ANY DIFFICULTY BREATHING. PATIENT LAYING IN THE BED HOB 30 DEGREES, VS STABLE, NO OBVIOUS SIGNS OF DISTRESS OBSERVED. PATIENT HAS NO IV AT START OF SHIFT. SKINS INTACT. PATIENT ASSISTED WITH REPOSITIONING Q2, ORIENTED TO ROOM ENVIRONMENT, NURSE CALL LIGHT LEFT WITHIN REACH OF PATIENT. BED LOCKED AND LOWERED INTO A POSITION OF SAFETY. WILL CONTINUE TO CLOSELY MONITOR AND FREQUENTLY ROUND THROUGHOUT THE SHIFT.
[2021-05-30 20:00] VITALS: BP 136/60
--- NOTE | 2021-05-30 21:34 | NUR ---
SCHEDULED MEDICATIONS GIVEN ORDERED BY MD. VS STABLE, NO OBVIOUS SIGNS OF DISTRESS OBSERVED WHILE AT BEDSIDE. WILL CONTINUE TO CLOSELY MONITOR AND FREQUENTLY ROUND.
--- NOTE | 2021-05-30 23:10 | NUR ---
PATIENT STATED FEELING FINE WHEN ASKED, PATIENT STATED WANTS TO TRY AND GET SOME SLEEP. VS STABLE, NO OBVIOUS SIGNS OF DISTRESS OBSERVED WHILE AT BEDSIDE. WILL CONTINUE TO CLOSELY MONITOR AND FREQUENTLY ROUND.
--- NOTE | 2021-05-31 01:14 | NUR ---
PATIENT ASLEEP, RESTING IN A POSITION OF COMFORT, NO OBVIOUS SIGNS OF DISTRESS WHILE AT BEDSIDE, VS STABLE, AIRWAY OPEN, CLEAR AND MAINTAINABLE, HOB 30 DEGREES, OXYGEN SATURATION 97% ROOM AIR, RR 16. WILL CONTINUE TO CLOSELY MONITOR AND FREQUENTLY ROUND.
--- NOTE | 2021-05-31 03:03 | NUR ---
PATIENT CONTINUES TO SLEEP IN A POSITION OF COMFORT, VS STABLE, OXYGEN SATURATION 96%, RR 14, NO OBVIOUS SIGNS OF DISTRESS OBSERVED WHILE AT BEDSIDE. SAFETY CHECKS/MEASURES IN PLACE. WILL CONTINUE TO CLOSELY MONITOR AND FREQUENTLY ROUND.
[2021-05-31 04:00] VITALS: BP 100/57
--- NOTE | 2021-05-31 04:30 | NUR ---
SCHEDULED MEDICATIONS GIVEN ORDERED, WILL CONTINUE TO CLOSELY MONITOR AND FREQUENTLY ROUND.
--- NOTE | 2021-05-31 05:11 | NUR ---
PATIENT WATCHING TV IN THE BED, RESTING IN A POSITION OF COMFORT. DENIES ANY PAIN OR DISCOMFORT WHEN ASKED. VS STABLE, NO OBVIOUS SIGNS OF DISTRESS OBSERVED WHILE AT BEDSIDE. WILL CONTINUE TO CLOSELY MONITOR AND FREQUENTLY ROUND.
--- NOTE | 2021-05-31 06:12 | NUR ---
MORNING CARE, [place]ORO CARE, ORAL CARE, HYGIENE, GOWN CHANGE, LINEN CHANGE AND SAFETY CHECKS PROVIDED. PATIENT VS STABLE, NO OBVIOUS SIGNS OF DISTRESS OBSERVED WHILE AT BEDSIDE. PATIENT TOLERATING THERAPIES WELL. REPOSITIONING ASSISTED WITH EVERY Q2 THROUGH OUT SHIFT. PATIENT RESTING WITH HOB 30 DEGREES, AIRWAY OPEN CLEAR AND MAINTAINABLE. BED LOCKED AND LOWERED INTO A POSITION OF SAFETY, CALL LIGHT WITHIN REACH OF PATIENT. DECREASED STIMULI IN ROOM ENVIRONMENT TO PROMOTE HEALING AND REST. EDUCATED PATIENT ON SAFETY MEASURES AND ALL ASPECTS OF PLAN OF CARE. WILL CONTINUE TO CLOSELY MONITOR AND FREQUENTLY ROUND.
--- NOTE | 2021-05-31 07:30 | NUR ---
REPORT AND CARE ENDORSED TO DAYSHIFT RN, VS STABLE.
--- NOTE | 2021-05-31 07:35 | NUR ---
REPORT RECEIVED FROM AUTOMATIC HEMMER RN. PT RESTING IN BED EYES CLOSED EASY TO AROUSE. NO S/SX OF DISTRESS AT THIS TIME. ALL SAFETY MEASURES ARE IN PLACE
[2021-05-31] MEDS: POTASSIUM CHLORIDE 10 MEQ TABER PO SCH ×2 (08:29→21:46)
[2021-05-31] MEDS: QUEtiapine FUMARATE 25 MG TAB PO SCH ×2 (08:29→21:46)
[2021-05-31] MEDS: SENNA 8.6 MG TAB PO SCH ×3 (08:30→17:25)
[2021-05-31] MEDS: MAGNESIUM OXIDE 400 MG TAB PO SCH ×2 (08:30→21:46)
--- NOTE | 2021-05-31 08:39 | NUR ---
MEDICATIONS GIVEN PER MD ORDER. PT EDUCATED , REFUSED REGISTERED NURSE BEHAVIORAL HEALTH. PT TOLERATED WELL , VERBALIZED UNDERSTANDING . PT EATING BREAKFAST
--- NOTE | 2021-05-31 10:25 | NUR ---
PATIENT IS STABLE, NO DISTRESS, ALL NEEDS ATTENDED, KEPT CLEAN, DRY AND COMFORTABLE
--- NOTE | 2021-05-31 12:32 | NUR ---
PT ROUNDED ON PT EATING LUNCH. DENIES PAIN AT THIS TIME, PT SITTING, NO S S/SX OF DISTRESS. ALL SAFETY MEASURES ARE IN PLACE
--- NOTE | 2021-05-31 12:34 | NUR ---
PT REQUEST MORE FOOD. NUTRITION AWARE.
--- NOTE | 2021-05-31 13:13 | NUR ---
MEDICATIONS GIVEN PER MD ORDER. PT EDUCATED . PT VERBALIZED UNDERSTANDING PT STATES NO BM THUS FAR GOES EVERY 5 DAYS
--- NOTE | 2021-05-31 15:00 | NUR ---
PT ROUNDED ON PT URINATED ALL OVER BED . ASSISTED TO CLEANSE AND CHANGING LINEN. PT TOLERATED WELL.
--- NOTE | 2021-05-31 15:21 | NUR ---
Called and spoke to Supriya/GEORGI she stated the physician will not be updating the patient's hold and social workers will work on placeing the patient with a SNF Psychiatric facility. At this time call center will not be assisting with placement.
[2021-05-31 16:00] VITALS: BP 102/62
--- NOTE | 2021-05-31 16:01 | NUR ---
PT RESTING IN BED EYES CLOSED , NO S/SX OF DISTRESS
--- NOTE | 2021-05-31 17:25 | NUR ---
MEDICATIONS GIVEN PER MD ORDER. PT EDUCATED VERBALIZED UNDERSTANDING.
--- NOTE | 2021-05-31 19:23 | NUR ---
PT ENDORSED TO HAND WEAVER RN FOR CONTINUITY OF CARE. PT INSTABLE CONDITION. ALL SAFETY MEASURES IN PLACE.
[2021-05-31 20:00] VITALS: BP 153/65
--- NOTE | 2021-05-31 20:00 | NUR ---
RECEIVED PATIENT IN BED ASLEEP BUT EASILY AROUSABLE. PT ON ROOM AIR. NO SOB OR S/S OF DISTRESS. NO IV LINE PLACE. BED LOWERED WITH CALL LIGHT WITHIN REACH. WILL CONTINUE TO MONITOR
--- NOTE | 2021-05-31 21:46 | NUR ---
ADMINISTERED SCHEDULED MEDS. PT TOLERATED WELL
--- NOTE | 2021-06-01 04:00 | NUR ---
NEW IV LINE STARTED. LINENS CHANGED
[2021-06-01] MEDS: MAG SULF 2000 MG/WATER PREMIX 50 ML IV PRN (05:08)
[2021-06-01 07:02] LABS: ANION GAP 9.7 (8-16); CARBON DIOXIDE 26.3 mmol/L (21-32); CREATININE 0.8 mg/dL (0.6-1.3)
[2021-06-01 07:04] LABS: BASOPHILS # (AUTO) 0.1 K/uL (0.00-0.22); BASOPHILS % (AUTO) 0.5 % (0.0-2.0); EOSINOPHILS # (AUTO) 0.4 K/uL (0-0.4); EOSINOPHILS % (AUTO) 2.1 % (0.0-4.0); HEMATOCRIT 22.8 % (36-52); HEMOGLOBIN 7.8 g/dL (12.0-18.0); LYMPHOCYTES # (AUTO) 0.9 K/uL (2.0-11.5); LYMPHOCYTES % (AUTO) 5.2 % (20.5-51.1); MEAN CORPUSCULAR HEMOGLOBIN 36 pg (27-31); MEAN CORPUSCULAR HGB CONC 34 g/dL (33-37); MEAN CORPUSCULAR VOLUME 107.1 fL (80-94); MONOCYTES # (AUTO) 0.8 K/uL (0.8-1.0); MONOCYTES % (AUTO) 4.5 % (1.7-9.3); NEUTROPHILS # (AUTO) 15.9 K/uL (1.8-7.7); NEUTROPHILS % (AUTO) 87.7 % (42.2-75.2); PLATELET COUNT (AUTO) 255 K/uL (140-450); RED BLOOD CELL COUNT(AUTO) 2.13 MIL/uL (4.20-6.10); RED CELL DISTRIBUTION WIDTH 29.7 % (11.6-13.7); WHITE BLOOD COUNT (AUTO) 18.2 K/uL (4.8-10.8)
--- NOTE | 2021-06-01 07:10 | NUR ---
RECEIVED BEDSIDE REPORT FROM PATTERN VAULT CLERK NURSE FOR CONTINUITY OF CARE. PT IS SLEEPING IN BED. PT IS COVERING HIS HEAD WITH A BLANKET. PT IN RA WITH VISIBLE CHEST RISE AND FALL, BREATHING IS UNLABORED. PT AMBULATES INDEPENDENTLY AND CONTINENT OF BOWEL AND BLADDER. SKIN IS DRY, WARM AND INTACT. IV ON LEFT FA 20 GAUGE, SALINE LOCK. PT IS STABLE.
--- NOTE | 2021-06-01 07:32 | NUR ---
PT REPORT GIVEN AT BEDSIDE. PATIENT ENDORSED IN STABLE CONDITION
[2021-06-01 08:00] VITALS: BP 96/59
[2021-06-01] MEDS: SENNA 8.6 MG TAB PO SCH ×3 (09:15→16:05)
[2021-06-01] MEDS: QUEtiapine FUMARATE 25 MG TAB PO SCH ×3 (09:15→22:28)
[2021-06-01] MEDS: MAGNESIUM OXIDE 400 MG TAB PO SCH ×2 (09:15→22:29)
[2021-06-01] MEDS: POTASSIUM CHLORIDE 10 MEQ TABER PO SCH ×2 (09:15→22:27)
--- NOTE | 2021-06-01 09:30 | NUR ---
PT AMBULATED TO THE RESTROOM. STANDBY ASSISTANCE WAS AVAILABLE. GAIT WAS STEADY, BUT PT STATED HE HAD SOME WEAKNESS. DENIES PAIN AT THIS TIME. NO RESPIRATORY DISTRESS NOTED. PT IS STABLE. BACK TO BED, BLANKET WAS PROVIDED FOR COMFORT.
--- NOTE | 2021-06-01 11:50 | NUR ---
PT STATING THAT HE HAS ITCHINESS ALL OVER BODY. NO RASH, REDNESS, WARMTH NOTED AND PT DENIED ANY SHORTNESS OF BREATH. FAMILY AT BEDSIDE. NOTIFIED DR. SOUZA ABOUT ITCHINESS. TELEPHONE ORDER FOR BENADRYL 25 MG PO. WILL ADMINISTER ONCE VERIFIED.
--- NOTE | 2021-06-01 13:00 | NUR ---
PT DENIES ITCHINESS AND STATED THE BENADRYL HELPED. TWO NEW FAMILY MEMBERS AT BEDSIDE. NO RESPIRATORY DISTRESS NOTED. PT DENIES PAIN. WILL CONTINUE TO MONITOR.
--- NOTE | 2021-06-01 13:45 | NUR ---
RECEIVED PATIENT REPORT FROM GEORGI BARRETT FOR CONTINUITY OF CARE.
--- NOTE | 2021-06-01 13:45 | NUR ---
ENDORSED PT TO MELODIE LAUREANO FOR CONTINUITY OF CARE. PT IS STABLE AT THIS TIME. PLAN OF CARE DISCUSSED.
--- NOTE | 2021-06-01 15:13 | NUR ---
CHECKED ON PATIENT. PATIENT IS STABLE. NO DISTRESS NOTED. PATIENT'S FAMILY AT BEDSIDE. WILL CONTINUE TO MONITOR
[2021-06-01 16:00] VITALS: BP 94/58
[2021-06-01] MEDS: HYDROcodone/APAP 5/325 MG 1 TAB TAB PO PRN (16:02)
--- NOTE | 2021-06-01 16:02 | NUR ---
PATIENT COMPLAINED OF GENERALIZED PAIN 6/10. ADMINISTERED PRN PAIN MEDICATIONS PER MD ORDERED.
--- NOTE | 2021-06-01 17:50 | NUR ---
PATIENT REMOVED IV. NOTIFIED MD REGARDING PATIENT'S REMOVAL OF IV. AWAITING FOR NEW ORDERS FOR IV PLACEMENT FOR PATIENT.
--- NOTE | 2021-06-01 18:07 | NUR ---
NEW ORDERS WERE RECEIVED BY MD. PATIENT DOES NOT NEED IV. WILL NOT PLACE NEW IV ON PATIENT.
--- NOTE | 2021-06-01 19:19 | NUR ---
ENDORSED TO VENTILATION MECHANIC NURSE FOR CONTINUITY OF CARE. PT IS STABLE.
[2021-06-01 20:00] VITALS: BP 130/74
[2021-06-02 02:29] VITALS: BP 135/75
--- NOTE | 2021-06-02 02:31 | NUR ---
pt is sleeping wellvss
[2021-06-02 05:24] VITALS: BP 128/68
--- NOTE | 2021-06-02 06:10 | NUR ---
PT SLEPT WELL VSS COMPLIENT WTH TAKIN HIS MEDICATION
--- NOTE | 2021-06-02 07:25 | NUR ---
RECEIVED BEDSIDE REPORT FROM DELIVERY ROUTE DRIVER NURSE FOR CONTINUITY OF CARE. PT IS AWAKE AND ALERT. PT LAYING IN BED WATCHING TELEVISION. PT IS ON RA WITH UNLABORED BREATHING, SYMMETRICAL CHEST RISE AND FALL. PT SKIN IS DRY AND WARM. PT IS STABLE. REVIEW PLAN OF CARE. ALL SAFETY MEASURES ARE IN PLACE. CALL LIGHT WITHIN REACH. WILL CONTINUE TO MONITOR.
[2021-06-02] MEDS: SENNA 8.6 MG TAB PO SCH ×3 (08:23→17:20)
--- NOTE | 2021-06-02 09:45 | NUR ---
PT IS LAYING IN BED COVERED FROM HEAD TO TOE WITH BLANKETS. PT ANSWERS BACK WHEN TALKED TO AND UNCOVERS SELF. PT IS ON RA WITH VISIBLE CHEST RISE AND FALL, NO DISTRESS NOTED. PT'S SKIN IS DRY AND WARM. PT IS STABLE. CALL LIGHT WITHIN REACH. ALL SAFETY MEASURES ARE IN PLACE. WILL CONTINUE TO MONITOR.
--- NOTE | 2021-06-02 09:50 | NUR ---
PT IS AWAKE AND ALERT LAYING IN BED. PT STATES THAT SHE HAS PAIN IN HER LEFT LEG 08/18. PT IS IN RA WITH UNLABORED BREATHING. WILL ADMINISTER PRN PAIN MEDICATION. PT IS STABLE. CALL LIGHT WITHIN REACH. ALL MEASURES ARE IN PLACE. WILL CONTINUE TO MONITOR. Addendum: 06/02/21 at 1037 by Harriett Martinez RN RN DISREGARD NOTE. WRONG PT.
--- NOTE | 2021-06-02 11:30 | NUR ---
PT IS SLEEPING IN BED WITH VISIBLE CHEST RISE AND FALL. NO DISTRESS NOTED. PT IS STABLE. ALL SAFETY MEASURE ARE IN PLACE. WILL CONTINUE TO MONITOR.
--- NOTE | 2021-06-02 13:41 | NUR ---
PT IS AWAKE, EATING LUNCH, AND WATCHING TELEVISION. PT IS ON RA WITH SYMMETRICAL BREATHING. PT IS STABLE. CALL LIGHT WITHIN REACH. ALL SAFETY MEASURES ARE IN PLACE. WILL CONTINUE TO MONITOR.
--- NOTE | 2021-06-02 14:45 | NUR ---
PT IS SLEEPING IN BED. PT IS ON RA WITH VISIBLE CHEST RISE AND FALL. PT IS STABLE. ALL SAFETY MEASURES ARE IN PLACE. CALL LIGHT WITHIN REACH. WILL CONTINUE TO MONITOR.
[2021-06-02 16:00] VITALS: BP 108/66
--- NOTE | 2021-06-02 16:20 | NUR ---
PT IS AWAKE WATCHING TELEVISION. PT IS ON RA WITH UNLABORED BREATHING. PT DENIES ANY PAIN. PT IS STABLE. CALL LIGHT WITHIN REACH. ALL SAFETY MEASURES ARE IN PLACE. WILL CONTINUE TO MONITOR.
--- NOTE | 2021-06-02 17:15 | NUR ---
PT IS AWAKE SITTING IN BED WATCHING TV. PT IS ON RA WITH UNLABORED BREATHING. PT IS STABLE. PT STATES NO PAIN AT THIS TIME. CALL LIGHT WITHIN REACH. WILL CONTINUE TO MONITOR.
--- NOTE | 2021-06-02 18:30 | NUR ---
PT IS AWAKE AND WATCHING TELEVISION. PT IS ON RA WITH UNLABORED BREATHING. PT IS STABLE. CALL LIGHT WITHIN REACH. ALL SAFETY MEASURES IN PLACE. WILL CONTINUE TO MONITOR.
--- NOTE | 2021-06-02 19:20 | NUR ---
ENDORSED BEDSIDE REPORT TO HOSE BUILDER NURSE FOR CONTINUITY OF CARE. PT IS STABLE.
--- NOTE | 2021-06-02 20:00 | NUR ---
RECEIVED PATIENT IN BED ALERT AND COHERENT, SLEEPY, NO S/S OF DISTRESS
[2021-06-02] MEDS: QUEtiapine FUMARATE 25 MG TAB PO SCH (21:00)
[2021-06-02] MEDS: MAGNESIUM OXIDE 400 MG TAB PO SCH (21:00)
--- NOTE | 2021-06-02 21:00 | NUR ---
ALLDUE MEDS WERE GIVEN BY MOUTH, TOLERATED WELL.
--- NOTE | 2021-06-03 | NUR ---
RN MADE ROUND PATIENT WAS CALMLY ASLEEP
--- NOTE | 2021-06-03 02:00 | NUR ---
PATIENT SOILED HIMSELF, RN AND CHARGE NURSE HELPED TO CLEAN HIM
--- NOTE | 2021-06-03 04:00 | NUR ---
PATIENT WAS ASLEEP
--- NOTE | 2021-06-03 06:21 | NUR ---
REPORTS WERE GIVEN ,TRANSFER OF CARE ENDORSED.
--- NOTE | 2021-06-03 06:23 | NUR ---
REPORTS WERE GIVEN ,TRANSFER OF CARE ENDORSED.
--- NOTE | 2021-06-03 07:30 | NUR ---
RECEIVED PT AAO WITH PERIODS OF CONFUSION. NO SOB NOTED. NO C/O PAIN AT THIS TIME. NO IV ACCESS, PT REFUSED, ATTENDING NOTIFIED. INSTRUCTED PT TO CALL FOR ASSISTANCE, CALL LIGHT WITHIN REACH, VERBALIZED PARTIAL UNDERSTANDING.
[2021-06-03 07:42] LABS: ANION GAP 11.7 (8-16); CARBON DIOXIDE 24.1 mmol/L (21-32); POTASSIUM 3.8 mmol/L (3.5-5.1)
[2021-06-03 08:00] VITALS: BP 104/61
--- NOTE | 2021-06-03 08:00 | NUR ---
RECEIVED PT AAO WITH PERIODS OF CONFUSION. NO SOB NOTED. NO C/O PAIN AT THIS TIME. NO IV ACCESS, PT REFUSED, ATTENDING NOTIFIED. INSTRUCTED PT TO CALL FOR ASSISTANCE, CALL LIGHT WITHIN REACH, VERBALIZED PARTIAL UNDERSTANDING. Addendum: 06/03/21 at 1601 by Ashley Carrziales RN PLS DISREGARD ABOVE NOTES, DUPLICATE.
--- NOTE | 2021-06-03 09:30 | NUR ---
PT. ADMITTED WITH LOW YULIET SCALE AT RISK, CONTINUE ALL PRESSURE INJURY INTERVENTION -APPLY HEEL PROTECTORS TO BOTH HEELS AT ALL TIMES -OFFLOAD BILATERAL HEELS BY PLACING PILLOWS UNDER CALVES UNLESS OTHERWISE CONTRAINDICATED -PRESSURE REDISTRIBUTION SURFACE THERAPY -TURN AND REPOSITION Q2H, OFFLOAD SACRALCOCCYX AND BUTTOCKS BY TURNING RIGHT AND LEFT -CONTINUE TO FOLLOW RD RECOMMENDATIONS
[2021-06-03] MEDS: QUEtiapine FUMARATE 25 MG TAB PO SCH ×2 (09:55→20:24)
[2021-06-03] MEDS: MAGNESIUM OXIDE 400 MG TAB PO SCH ×2 (09:56→20:24)
[2021-06-03] MEDS: POTASSIUM CHLORIDE 10 MEQ TABER PO SCH (09:56)
[2021-06-03] MEDS: SENNA 8.6 MG TAB PO SCH ×3 (09:57→17:00)
--- NOTE | 2021-06-03 10:00 | NUR ---
SPOKE WITH PAT-CM, STATED THEY ARE STILL WAITING FOR PLACEMENT. PT'S NIECE CALLED AND UPDATED REGARDING PLACEMENT STATUS, NIECE VERBALIZED UNDERSTANDING.
--- NOTE | 2021-06-03 11:33 | NUR ---
Pat/BRUNA called and said that patient was still needing placement and was unsure why their nurse said patient was going to be going to a SNF. She re faxed intake information. Intake was faxed to the following facilities for placement. [facility].....will keep facility updated with any information
--- NOTE | 2021-06-03 14:00 | NUR ---
SPOKE WITH PT'S NIECE JOSS ON THE PHONE, STATED SHE WANTS TO TALK TO THE CM. PAT-CM, MADE AWARE, STATED SHE WILL GIVE HER A CALL.
--- NOTE | 2021-06-03 15:29 | NUR ---
Let message for Pat. Patient's 5150 has
[2021-06-03 16:00] VITALS: BP 93/57
--- NOTE | 2021-06-03 16:35 | NUR ---
06/03/21 RD FOLLOW UP COMPLETED PLEASE REFER TO NUTRITION ASSESSMENT UNDER CARE ACTIVITY FOR ESTIMATED NUTRITIONAL NEEDS. 1. CONTINUE CARDIAC DIET TOLERATED 2. RECOMMEND ENSURE BID 3. RD TO FOLLOW-UP 5-7 DAYS, LOW RISK TERRI GOMEZ RD
--- NOTE | 2021-06-03 19:30 | NUR ---
PT RESTING. NO COMPLAINTS MADE. ENDORSED TO NEXT SHIFT NURSE FOR CONTINUITY OF CARE.
--- NOTE | 2021-06-03 19:35 | NUR ---
RECIEVED BEDSIDE ENDORSEMENT FROM DAY SHIFT RN, PT LYING IN BED RESTING WATHCING TV, A&OX2/3, SLIGHTLY CONFUSED, SR ON MONITOR, ON ROOM AIR, VSS, ABD SOFT AND NON TENDER TO TOUCH, GEN BRUISING IN UPPER ARMS, SKIN WARM DRY AND INTACT, PT INCONTINENT, SHOWING NO SIGNS OF ACUTE DISTRESS, SAFETY MEASURES IN PLACE, WILL CONTINUE WITH CURRENT POC
--- NOTE | 2021-06-03 20:24 | NUR ---
PT REFUSED MEDICATIONS
--- NOTE | 2021-06-03 20:25 | NUR ---
EDUCATED PT ON MEDICAITON PURPOSE AND AFFECTS/EFFECTS, PT STILL REFUSED MEDICATIONS
--- NOTE | 2021-06-03 22:43 | NUR ---
PT ASLEEP AND SHOWING NO SIGNS OF ACUTE DISTRESS
[2021-06-04] VITALS: BP 108/61
--- NOTE | 2021-06-04 00:23 | NUR ---
ENDORSED TO DAY CARE WORKER RN FOR CONTINUITY OF CARE
--- NOTE | 2021-06-04 00:24 | NUR ---
RECEIVED REPORT FROM JAXSON LAUREANO FOR CONTINUITY OF CARE.
--- NOTE | 2021-06-04 02:19 | NUR ---
PT IN BED SLEEPING. NO S/SX OF PAIN OR DISCOMFORT NOTED. PT KEPT COMFORTABLE.
[2021-06-04 04:00] VITALS: BP 124/65
--- NOTE | 2021-06-04 04:08 | NUR ---
VS STABLE. PT IN BED RESTING. NO COMPLAINTS OR REQUESTS MADE AT THIS TIME. PT NOT IN DISTRESS. SAFETY MEASURES IN PLACE. WILL CONTINUE TO MONITOR.
--- NOTE | 2021-06-04 06:26 | NUR ---
PT RESTING IN BED. PT NOT IN DISTRESS. NO REQUESTS MADE. WILL CONTINUE TO MONITOR.
--- NOTE | 2021-06-04 07:09 | NUR ---
ENDORSED TO DAY SHIFT NURSE FOR CONTINUITY OF CARE
--- NOTE | 2021-06-04 09:00 | NUR ---
SPOKE WITH ELOY TRANSPORTATION SECURITY SCREENER AT [facility], STATED THEY ACCEPTED PT., ACCEPTING DR. HI [facility] [address], GERIATRIC UNIT [address] [place] [id number] TO CALL FOR REPORT: [phone] FAX [phone] HOLD FORM TO [phone]/ [phone] ASHU ASSIGNED MADE AWARE. CALLED DR. ARISTEO HAWLEY TO RENEW 5150 HOLD, STATED HE WILL COME [place].
[2021-06-04] MEDS: POTASSIUM CHLORIDE 10 MEQ TABER PO SCH (10:30)
[2021-06-04] MEDS: SENNA 8.6 MG TAB PO SCH ×2 (10:30→12:38)
[2021-06-04] MEDS: QUEtiapine FUMARATE 25 MG TAB PO SCH (10:35)
[2021-06-04] MEDS: MAGNESIUM OXIDE 400 MG TAB PO SCH (10:36)
[2021-06-04] MEDS ORDERED: ONDANSETRON 4 MG/2 ML VIAL IM/IVP PRN (11:30)
--- NOTE | 2021-06-04 11:48 | NUR ---
Patient has been accepted to [facility] Accepting Physician - Dr Brannon Pending updated hold Patient will be going to the [facility] SW/Pat Aware
--- NOTE | 2021-06-04 15:35 | NUR ---
PT WHEELED OUT BY [facility] IN STABLE CONDITION. NO SOB NOTED. NO COMPLAINTS MADE. ORIGINAL 6270 HOLD GIVEN TO [facility] STAFF WITH PT'S D/C PACKET.
--- NOTE | 2021-06-04 22:19 | NUR ---
PATIENT DISCHARGED AT 15:30 TO NEW FACILITY PER AMBULANCE SERVICE PATIENT NOT COOPERATIVE AT ALL TIME'S REFUSING CARE. FOUND ON FLOOR AT ONE POINT ASSITED BACK UP IN BED. pATIENT HAD ONE EPISODE OF N/V GIVEN IM ZOFRAN 4 MG WITH GOOD RESULTS. REPORT GIVEN TO AMBULANCE SERVICE. PLACED IN RESTRAINS WHILE ON STRETCHER PATIENT CONTINUES ON 5150 HOLD
== END 2021-06-04 14:42 | DRG 640 ==
LOC: MED 13:23 → MTU 16:26
PROVIDERS: ADMIT Hospitalist; ATTEND Hospitalist
PROC: 30233N1 Transfusion of Nonautologous Red Blood Cells into Peripheral Vein, Percutaneous Approach (ICD-10-PCS; principal; 2021-05-23)
DX: E87.6 Hypokalemia (principal); G93.41 Metabolic encephalopathy; E46 Unspecified protein-calorie malnutrition; E44.0 Moderate protein-calorie malnutrition; Z68.1 Body mass index [BMI] 19.9 or less, adult; Z20.822 Contact with and (suspected) exposure to COVID-19; Z88.8 Allergy status to other drugs, medicaments and biological substances; D50.9 Iron deficiency anemia, unspecified; F20.9 Schizophrenia, unspecified; F10.10 Alcohol abuse, uncomplicated; F03.90 Unspecified dementia, unspecified severity, without behavioral disturbance, psychotic disturbance, mood disturbance, and anxiety; Z91.19 Patient's noncompliance with other medical treatment and regimen; E83.51 Hypocalcemia; E80.6 Other disorders of bilirubin metabolism; E86.0 Dehydration; Z59.0 Homelessness; F31.9 Bipolar disorder, unspecified
CPT/HCPCS: 36415; 36430; 70450; 71045; 76700; 80048; 80053; 80305; 81003; 82272; 82550; 82607; 82728; 82746; 83036; 83540; 83735; 83880; 84484; 85025; 85610; 85730; 86886; 86900; 86901; 86920; 87040; 87081; 87086; 93005; 96361; 96365; 96368; 97110; 97112; 97116; 97163-GP; 97530; 99285; G0480; G0482; J2405; J3475; J3480; P9016; Q0163; U0003